=== PATIENT | male | born 1945 | race Caucasian/White ===

== ENCOUNTER 2017-11-13 10:56 | Day surgery (SDC) | payer OTHER ==
[2017-11-12 09:09] VITALS: BP 189/78
[~2017-11-13] VITALS: Ht 167.6 cm; Wt 82.8 kg
[~2017-11-13 10:56] MED LIST: AMLO10TA2 PO; ASPI-496 PO; GLIP-164 PO; INSU100V8 SQ; LISI-167 PO; METF10002 PO; PANT40TA5 PO; SIMV20TA3 PO
[2017-11-13] MEDS ORDERED: LACTATED RINGERS 1,000 ML IV SCH (11:24)
[2017-11-13 11:25] VITALS: BP 189/78
[2017-11-13 12:07] LABS: ASPARTATE AMINO TRANSFERASE 48 U/L (15-37); BLOOD UREA NITROGEN 10 mg/dL (7-18)
[2017-11-13] MEDS ORDERED: ROCURONIUM 10 MG/ML,10ML ONE (13:03)
[2017-11-13] MEDS ORDERED: PROPOFOL 10 MG/ML, 20ML ONE (13:03)
[2017-11-13] MEDS ORDERED: SUCCINYLCHOLINE 20 MG/ML, 10ML ONE (13:03)
[2017-11-13] MEDS ORDERED: MIDAZOLAM 1 MG/ML, 2ML ONE (13:04)
[2017-11-13] MEDS ORDERED: FENTANYL PF 100 MCG/2ML ONE (13:04)
[2017-11-13] MEDS ORDERED: HYDROcodone/APAP 7.5-325MG/15ML UDC PO PRN (13:30)
[2017-11-13] MEDS ORDERED: OXYcodone 5 MG/5 ML ORAL.SOL UDC PO PRN (13:30)
[2017-11-13] MEDS ORDERED: LORazepam 2 MG/ML, 1ML IVPush PRN (13:30)
[2017-11-13] MEDS ORDERED: ACETAMINOPHEN 325 MG TABLET PO PRN (13:30)
[2017-11-13] MEDS ORDERED: METOCLOPRAMIDE 5 MG/ML, 2ML IV PRN (13:30)
[2017-11-13] MEDS ORDERED: METOPROLOL 1 MG/ML, 5ML IV PRN (13:30)
[2017-11-13] MEDS ORDERED: PROMETHAZINE 25 MG/ML, 1ML IV PRN (13:30)
[2017-11-13] MEDS ORDERED: LABETALOL 5MG/ML, 20ML IV PRN (13:30)
[2017-11-13] MEDS ORDERED: hydrALAzine 20 MG/ML, 1ML IV PRN (13:30)
[2017-11-13] MEDS ORDERED: ALBUTEROL SULFATE 2.5 MG/3 ML NPPB PRN (13:30)
[2017-11-13] MEDS ORDERED: MEPERIDINE/PF 25MG/0.5ML IVPush PRN (13:30)
[2017-11-13] MEDS ORDERED: FENTANYL PF 100 MCG/2ML IV PRN (13:30)
[2017-11-13] MEDS ORDERED: ONDANSETRON 2MG/ML, 2ML IVPush PRN (13:30)
[2017-11-13] MEDS ORDERED: HYDROmorphone 1 MG/ML, 1ML IV PRN (13:30)
[2017-11-13] MEDS ORDERED: ONDANSETRON 2MG/ML, 2ML ONE (13:52)
[2017-11-13] MEDS ORDERED: GLYCOPYRROLATE 0.2MG/1ML, 5ML ONE (14:05)
[2017-11-13] MEDS ORDERED: NEOSTIGMINE 1 MG/ML, 10ML ONE (14:05)
[2017-11-13] MEDS ORDERED: ALBUTEROL HFA 90 MCG/SPRAY ONE (14:05)
== END 2017-11-13 17:00 ==
LOC: OUT 10:56
DX: K80.50 Calculus of bile duct without cholangitis or cholecystitis without obstruction (principal); E11.9 Type 2 diabetes mellitus without complications; E78.5 Hyperlipidemia, unspecified; I10 Essential (primary) hypertension; Z98.890 Other specified postprocedural states; Z87.891 Personal history of nicotine dependence
CPT/HCPCS: 36415; 43264; 74328; 80053; 93005; C1769; J0330; J2250; J2405; J2704; J2710; J3010; J7120; J3490